=== PATIENT | male | born 1970 | race Two or more races ===

== ENCOUNTER 2023-09-26 14:00 | Inpatient (IN) | payer OTHER ==
[2023-09-26 14:44] VITALS: BMI 25.0
[2023-09-26] MEDS ORDERED: guaiFENesin 600 MG TABLET.ER (FP) PO PRN (15:50)
[2023-09-26] MEDS ORDERED: LOPERAMIDE HCL 2 MG CAPSULE PO PRN (15:50)
[2023-09-26] MEDS ORDERED: POLYETHYLENE GLYCOL (HEALTHYLAX) 3350 17 GM PACKET PO PRN (15:50)
[2023-09-26] MEDS ORDERED: ONDANSETRON *ODT* 4 MG TABLET SL PRN (15:50)
[2023-09-26] MEDS ORDERED: BENZONATATE 200 MG CAPSULE PO PRN (15:50)
[2023-09-26] MEDS ORDERED: NALOXONE HCL 0.4 MG/ML VIAL IM PRN (15:50)
[2023-09-26] MEDS ORDERED: MAG HYDROX/AL HYDROX/SIMETH 30 ML UNIT-DOSE CUP PO PRN (15:50)
[2023-09-26] MEDS ORDERED: BENZOCAINE/MENTHOL (CHLORASEPTIC ) LOZENGE MM PRN (15:50)
[2023-09-26] MEDS ORDERED: MAGNESIUM HYDROX 2400MG/30ML ORAL SUSPENSION 30 ML CUP PO PRN (15:50)
[2023-09-26] MEDS ORDERED: DICYCLOMINE HCL 10 MG CAPSULE PO PRN (15:50)
[2023-09-26] MEDS ORDERED: BISMUTH SUBSALICYLATE 524 MG/30 ML PO PRN (15:50)
[2023-09-26] MEDS ORDERED: NALOXONE HCL (KLOXXADO) 8 MG SPRAY NS PRN (15:50)
[2023-09-26] MEDS ORDERED: IBUPROFEN 400 MG TABLET (FP) PO PRN (15:50)
[2023-09-26] MEDS: LORazepam 2 MG TABLET PO ONE (16:25)
[2023-09-26] MEDS: PRENATAL VITAMINS W/ FOLIC ACID TABLET (FP) PO SCH (16:25)
[2023-09-26] MEDS: LORazepam 2 MG TABLET PO SCH (17:05)
[2023-09-26] MEDS: METHOCARBAMOL 500 MG TABLET PO PRN (20:14)
[2023-09-26] MEDS: hydrOXYzine PAMOATE 25 MG CAPSULE (FP) PO PRN (20:14)
[2023-09-26] MEDS: MELATONIN 5 MG TABLETS PO SCH (22:28)
[2023-09-26] MEDS: THIAMINE HCL 100 MG TABLET (FP) PO SCH (22:28)
[2023-09-27] MEDS: LORazepam 1 MG TABLET PO PRN (01:30)
[2023-09-27] MEDS: ACETAMINOPHEN 325 MG TABLET (FP) PO PRN (05:26)
[2023-09-27 09:34] VITALS: RESP 18
[2023-09-27] MEDS: IBUPROFEN 600 MG TABLET (FP) PO PRN (10:25)
[2023-09-27 12:32] LABS: HEMATOCRIT 31.9 % (35.4-49); HEMOGLOBIN 10.9 GM/dL (11.7-16.9); MCH 31.2 pg (25.7-33.7); MEAN CELL VOLUME 91.7 fl (80-96); RBC 3.48 M/mm3 (4.00-5.60)
[2023-09-27 12:47] LABS: CHLORIDE 107 mmol/L (98-107); SODIUM 140 mmol/L (136-145)
[2023-09-27 12:52] LABS: PLATELET COUNT 13 10^3/uL (134-434); WHITE BLOOD COUNT 1.6 K/mm3 (4.0-10.0)
[2023-09-27 13:09] LABS: ALBUMIN 2.8 g/dl (3.4-5.0); BLOOD UREA NITROGEN 8.2 mg/dL (7-18); CALCIUM 8.5 mg/dL (8.5-10.1); GLUCOSE,RANDOM 97 mg/dL (74-106)
[2023-09-27 13:10] LABS: ANION GAP 5 mmol/L (4-13); CO2 27 mmol/L (21-32)
[2023-09-27 13:11] LABS: CREATININE 0.5 mg/dL (0.55-1.3); SGPT/ALT 125 U/L (13-61)
[2023-09-27 13:13] LABS: BILIRUBIN,TOTAL 3.6 mg/dL (0.2-1); SGOT/AST 308 U/L (15-37); TOT PROT 6.2 g/dl (6.4-8.2)
[2023-09-27 13:15] LABS: ALK PHOS 217 U/L (45-117)
[2023-09-27 13:23] LABS: SYPHILIS W/ RPR CONF NON-REACTIVE (NONREACTIVE)
[2023-09-27 14:18] VITALS: BP 139/82; PULSE 89; TEMP 97.5
[2023-09-27 15:37] LABS: HIV INTERPRETATION NEGATIVE (NEGATIVE)
[2023-09-28] MEDS ORDERED: LORazepam 1 MG TABLET PO SCH (05:00)
[2023-09-29] MEDS ORDERED: LORazepam 0.5 MG TABLET PO PRN
[2023-09-29] MEDS ORDERED: LORazepam 0.5 MG TABLET PO SCH (05:00)
[2023-09-30] MEDS ORDERED: LORazepam 0.5 MG TABLET PO ONE (05:00)
== END 2023-09-27 23:49 | disposition short-term general hospital (02) | DRG 775 ==
LOC: YASAS 14:00 → Y6N 16:25
PROVIDERS: ADMIT Allergy & Immunology; ATTEND Surgery
PROC: HZ2ZZZZ Detoxification Services for Substance Abuse Treatment (ICD-10-PCS; principal; 2023-09-26)
DX: F10.230 Alcohol dependence with withdrawal, uncomplicated (principal); F17.210 Nicotine dependence, cigarettes, uncomplicated; D69.6 Thrombocytopenia, unspecified; D72.819 Decreased white blood cell count, unspecified; K74.60 Unspecified cirrhosis of liver
CPT/HCPCS: 36415; 80053; 80305; 80307; 85027; 86780; 87389; 87635; 87811

== ENCOUNTER 2023-09-27 15:23 | Inpatient (IN) | payer OTHER ==
[2023-09-27] MEDS: PANTOPRAZOLE SODIUM 40 MG VIAL IVPUSH ONE (17:00)
[2023-09-27] MEDS ORDERED: PANTOPRAZOLE SODIUM 40 MG/100 ML BAG IVPB ONE (17:08)
[2023-09-27 17:50] LABS: BASO % 0.6 % (0-2.0); HEMATOCRIT 31.3 % (35.4-49); HEMOGLOBIN 10.4 GM/dL (11.7-16.9); LYMPH % 33.4 % (8-40); MCH 30.6 pg (25.7-33.7); MCHC 33.2 g/dl (32.0-35.9); MEAN CELL VOLUME 92.3 fl (80-96); MEAN PLT VOLUME 9.3 fl (7.5-11.1); MONO % 9.2 % (3.8-10.2); NEUT % 51.8 % (42.8-82.8); RBC 3.39 M/mm3 (4.00-5.60); RDW 17.5 % (11.9-15.9)
[2023-09-27 17:59] LABS: INR 1.54 (0.83-1.09); PROTHROMBIN TIME (PATIENT) 17.8 SEC (9.7-13.0)
[2023-09-27 18:02] LABS: ACTIVATED PTT 32.7 SECONDS (25.2-36.5)
[2023-09-27 18:05] LABS: PLATELET COUNT 12 10^3/uL (134-434); WHITE BLOOD COUNT 1.9 K/mm3 (4.0-10.0)
[2023-09-27 18:15] LABS: POTASSIUM 3.8 mmol/L (3.5-5.1)
[2023-09-27 18:17] LABS: ALBUMIN 2.7 g/dl (3.4-5.0); CALCIUM 8.6 mg/dL (8.5-10.1); MAGNESIUM 1.4 mg/dL (1.8-2.4)
[2023-09-27 18:18] LABS: BLOOD UREA NITROGEN 10.9 mg/dL (7-18)
[2023-09-27 18:21] LABS: BILIRUBIN,DIRECT 2.8 mg/dL (0.0-0.2); CREATININE 0.5 mg/dL (0.55-1.3)
[2023-09-27 18:22] LABS: BILIRUBIN,TOTAL 4.4 mg/dL (0.2-1); TOT PROT 6.2 g/dl (6.4-8.2)
[2023-09-27] MEDS: LACTATED RINGERS SOLUTION 1000 ML INFUS.BAG IV ONE (19:43)
[2023-09-27] MEDS ORDERED: MAGNESIUM SULFATE IN WATER 2 GM/50 ML IVPB IVPB ONE (19:50)
[2023-09-27] MEDS: MAGNESIUM SULF 50% (8.12 MEQ/2 ML-1 GM VIAL) IVPB ONE (19:59)
[2023-09-27 20:24] LABS: ANISOCYTOSIS 1+; OVALOCYTE 1+; TEAR DROP CELLS 1+
[2023-09-27 20:27] LABS: PLATELET ESTIMATE DECREASED
[2023-09-27 22:46] LABS: HEMATOCRIT 29.2 % (35.4-49); HEMOGLOBIN 9.9 GM/dL (11.7-16.9); MEAN CELL VOLUME 91.2 fl (80-96); RDW 17.4 % (11.9-15.9)
[2023-09-27 22:50] LABS: WHITE BLOOD COUNT 1.7 K/mm3 (4.0-10.0)
[2023-09-27 22:51] LABS: PLATELET COUNT 24 10^3/uL (134-434)
[2023-09-28] MEDS: LACTATED RINGERS SOLUTION 1000 ML INFUS.BAG IV ONE ×2 (02:01→09:25)
[2023-09-28 07:04] LABS: POTASSIUM 3.9 mmol/L (3.5-5.1)
[2023-09-28 07:09] LABS: CALCIUM 8.4 mg/dL (8.5-10.1)
[2023-09-28 07:10] LABS: ALBUMIN 2.7 g/dl (3.4-5.0); BLOOD UREA NITROGEN 8.1 mg/dL (7-18); MAGNESIUM 1.5 mg/dL (1.8-2.4)
[2023-09-28 07:12] LABS: CREATININE 0.4 mg/dL (0.55-1.3); PHOSPHOROUS 2.9 mg/dL (2.5-4.9)
[2023-09-28 07:14] LABS: BILIRUBIN,DIRECT 3.3 mg/dL (0.0-0.2)
[2023-09-28 08:19] LABS: HEMATOCRIT 32.1 % (35.4-49); HEMOGLOBIN 10.9 GM/dL (11.7-16.9); MCH 31.3 pg (25.7-33.7); MCHC 33.9 g/dl (32.0-35.9); MEAN CELL VOLUME 92.4 fl (80-96); MEAN PLT VOLUME 8.5 fl (7.5-11.1); RBC 3.47 M/mm3 (4.00-5.60); RDW 16.9 % (11.9-15.9); WHITE BLOOD COUNT 2.1 K/mm3 (4.0-10.0)
[2023-09-28 08:24] LABS: ACTIVATED PTT 34.5 SECONDS (25.2-36.5)
[2023-09-28 08:27] LABS: INR 1.79 (0.83-1.09); PROTHROMBIN TIME (PATIENT) 20.6 SEC (9.7-13.0)
[2023-09-28 08:28] LABS: PLATELET COUNT 22 10^3/uL (134-434)
[2023-09-28] MEDS: LORazepam 1 MG TABLET PO ONE (09:19)
[2023-09-28] MEDS: MAGNESIUM SULFATE IN WATER 2 GM/50 ML IVPB IVPB ONE (09:19)
[2023-09-28] MEDS: PANTOPRAZOLE SODIUM 40 MG VIAL IVPUSH SCH (09:20)
[2023-09-28] MEDS: FOLIC ACID 1 MG TABLET (FP) PO SCH (11:34)
[2023-09-28] MEDS: THIAMINE HCL 100 MG TABLET (FP) PO SCH (11:34)
[2023-09-28] MEDS ORDERED: INSULIN (NOVOLOG) ASPART 100 UNITS/ML 10ML VIAL ONE (11:54)
[2023-09-28] MEDS: LORazepam 1 MG TABLET PO SCH (14:25)
[2023-09-29 08:59] LABS: BASO % 0.5 % (0-2.0); EOS % 2.7 % (0-4.5); HEMATOCRIT 32.2 % (35.4-49); HEMOGLOBIN 10.6 GM/dL (11.7-16.9); LYMPH % 27.4 % (8-40); MCH 30.6 pg (25.7-33.7); MCHC 32.9 g/dl (32.0-35.9); MEAN PLT VOLUME 8.3 fl (7.5-11.1); MONO % 9.1 % (3.8-10.2); NEUT % 60.3 % (42.8-82.8); RBC 3.46 M/mm3 (4.00-5.60); RDW 17.3 % (11.9-15.9); WHITE BLOOD COUNT 2.5 K/mm3 (4.0-10.0)
[2023-09-29 09:06] LABS: PLATELET COUNT 23 10^3/uL (134-434)
[2023-09-29 09:11] LABS: POTASSIUM 3.7 mmol/L (3.5-5.1)
[2023-09-29] MEDS: PANTOPRAZOLE SODIUM 40 MG VIAL IVPUSH SCH (09:11)
[2023-09-29 09:17] LABS: ALBUMIN 2.5 g/dl (3.4-5.0); CALCIUM 7.9 mg/dL (8.5-10.1)
[2023-09-29 09:18] LABS: BLOOD UREA NITROGEN 10.9 mg/dL (7-18)
[2023-09-29 09:20] LABS: CREATININE 0.5 mg/dL (0.55-1.3)
[2023-09-29 09:22] LABS: TOT PROT 5.7 g/dl (6.4-8.2)
[2023-09-29 09:30] LABS: BILIRUBIN,TOTAL 2.6 mg/dL (0.2-1)
[2023-09-29] MEDS: methylPREDNISolone 8 MG TABLET PO SCH (09:53)
[2023-09-29] MEDS: methylPREDNISolone 4 MG TABLET PO SCH (10:20)
[2023-09-29] MEDS ORDERED: LORazepam 1 MG TABLET PO PRN (11:35)
[2023-09-29] MEDS: LORazepam 1 MG TABLET PO SCH (11:54)
[2023-09-29] MEDS ORDERED: INSULIN (NOVOLOG) ASPART 100 UNITS/ML 10ML VIAL ONE (22:00)
[2023-09-29] MEDS: INSULIN ASPART SLIDING SCALE (NOVOLOG) 1 VIAL SQ SCH (22:03)
[2023-09-30 09:18] LABS: BASO % 0.1 % (0-2.0); EOS % 0.3 % (0-4.5); HEMATOCRIT 35.4 % (35.4-49); HEMOGLOBIN 11.6 GM/dL (11.7-16.9); LYMPH % 13.7 % (8-40); MCH 30.5 pg (25.7-33.7); MCHC 32.6 g/dl (32.0-35.9); MEAN CELL VOLUME 93.6 fl (80-96); MEAN PLT VOLUME 8.8 fl (7.5-11.1); MONO % 8.8 % (3.8-10.2); NEUT % 77.1 % (42.8-82.8); RBC 3.78 M/mm3 (4.00-5.60); RDW 17.5 % (11.9-15.9); WHITE BLOOD COUNT 5.6 K/mm3 (4.0-10.0)
[2023-09-30] MEDS: MAGNESIUM SULF 50% (8.12 MEQ/2 ML-1 GM VIAL) IVPB ONE (09:18)
[2023-09-30] MEDS: VANCOMYCIN 1,000 MG in DEXTROSE 5%-WATER - 250 ML IVPB ONE (09:18)
[2023-09-30] MEDS: CEFEPIME HCL 2 GM VIAL (RESTRICTED TO ID) IVPB ONE (09:19)
[2023-09-30 09:24] LABS: INR 1.53 (0.83-1.09); PROTHROMBIN TIME (PATIENT) 17.7 SEC (9.7-13.0)
[2023-09-30 09:40] LABS: PLATELET COUNT 27 10^3/uL (134-434)
[2023-09-30 09:51] LABS: POTASSIUM 3.9 mmol/L (3.5-5.1)
[2023-09-30 10:02] LABS: ALBUMIN 2.8 g/dl (3.4-5.0); CALCIUM 8.3 mg/dL (8.5-10.1)
[2023-09-30 10:03] LABS: BLOOD UREA NITROGEN 10.8 mg/dL (7-18)
[2023-09-30 10:05] LABS: CREATININE 0.5 mg/dL (0.55-1.3)
[2023-09-30 10:06] LABS: TOT PROT 6.5 g/dl (6.4-8.2)
[2023-09-30 10:07] LABS: BILIRUBIN,TOTAL 2.2 mg/dL (0.2-1)
[2023-09-30] MEDS ORDERED: LACTULOSE 20 GM/30 ML UDC (FOR ORAL USE ONLY) PO PRN (12:26)
[2023-09-30] MEDS ORDERED: INSULIN (NOVOLOG) ASPART 100 UNITS/ML 10ML VIAL ONE (20:09)
[2023-09-30] MEDS: LACTULOSE 20 GM/30 ML UDC (FOR ORAL USE ONLY) PO SCH (22:07)
[2023-10-01] MEDS: LORazepam 1 MG TABLET PO SCH (06:46)
[2023-10-01 09:25] LABS: INR 1.33 (0.83-1.09); PROTHROMBIN TIME (PATIENT) 15.4 SEC (9.7-13.0)
[2023-10-01 09:27] LABS: BASO % 0.1 % (0-2.0); EOS % 0.1 % (0-4.5); HEMATOCRIT 40.8 % (35.4-49); HEMOGLOBIN 13.3 GM/dL (11.7-16.9); LYMPH % 11.7 % (8-40); MCH 30.9 pg (25.7-33.7); MCHC 32.7 g/dl (32.0-35.9); MEAN CELL VOLUME 94.5 fl (80-96); MEAN PLT VOLUME 9.3 fl (7.5-11.1); MONO % 10.7 % (3.8-10.2); NEUT % 77.4 % (42.8-82.8); RBC 4.32 M/mm3 (4.00-5.60)
[2023-10-01 09:42] LABS: PLATELET COUNT 31 10^3/uL (134-434)
[2023-10-01 09:43] LABS: POTASSIUM 3.6 mmol/L (3.5-5.1)
[2023-10-01 09:50] LABS: ALBUMIN 3.4 g/dl (3.4-5.0); BLOOD UREA NITROGEN 12.4 mg/dL (7-18); CALCIUM 8.6 mg/dL (8.5-10.1); POTASSIUM 3.6 mmol/L (3.5-5.1)
[2023-10-01 09:51] LABS: CREATININE 0.6 mg/dL (0.55-1.3)
[2023-10-01 09:52] LABS: BILIRUBIN,TOTAL 1.9 mg/dL (0.2-1)
[2023-10-01 09:53] LABS: BILIRUBIN,DIRECT 1.3 mg/dL (0.0-0.2); TOT PROT 7.5 g/dl (6.4-8.2)
[2023-10-01 10:09] LABS: TOT PROT 7.7 g/dl (6.4-8.2)
[2023-10-01 10:22] LABS: CALCIUM 8.5 mg/dL (8.5-10.1)
[2023-10-01 10:23] LABS: ALBUMIN 3.3 g/dl (3.4-5.0); BLOOD UREA NITROGEN 12.3 mg/dL (7-18)
[2023-10-01 10:26] LABS: CREATININE 0.6 mg/dL (0.55-1.3)
[2023-10-01 21:38] LABS: HEPATITIS B SURFACE AG CONFIRM CONFIRMED (NONREACTIVE)
[2023-10-02] MEDS ORDERED: LORazepam 0.5 MG TABLET PO PRN
[2023-10-02] MEDS: LORazepam 0.5 MG TABLET PO SCH (06:40)
[2023-10-02 09:45] LABS: INR 1.41 (0.83-1.09); PROTHROMBIN TIME (PATIENT) 16.3 SEC (9.7-13.0)
[2023-10-02] MEDS: methylPREDNISolone 4 MG TABLET PO SCH (09:45)
[2023-10-02] MEDS: PANTOPRAZOLE 40 MG TABLET PO SCH (09:45)
[2023-10-02] MEDS: TENOFOVIR DISOPROXIL FUMARATE 300 MG TABLET PO SCH (09:45)
[2023-10-02 09:53] LABS: BASO % 0.5 % (0-2.0); EOS % 0.9 % (0-4.5); HEMATOCRIT 35.1 % (35.4-49); HEMOGLOBIN 11.5 GM/dL (11.7-16.9); LYMPH % 29.6 % (8-40); MCH 30.8 pg (25.7-33.7); MCHC 32.8 g/dl (32.0-35.9); MEAN CELL VOLUME 94.1 fl (80-96); MONO % 19.2 % (3.8-10.2); NEUT % 49.8 % (42.8-82.8); RBC 3.73 M/mm3 (4.00-5.60); RDW 18.6 % (11.9-15.9); WHITE BLOOD COUNT 3.2 K/mm3 (4.0-10.0)
[2023-10-02 10:11] LABS: CALCIUM 8.1 mg/dL (8.5-10.1)
[2023-10-02 10:13] LABS: PLATELET COUNT 26 10^3/uL (134-434); POTASSIUM 3.7 mmol/L (3.5-5.1)
[2023-10-02 10:14] LABS: CREATININE 0.6 mg/dL (0.55-1.3)
[2023-10-02 10:16] LABS: BILIRUBIN,TOTAL 1.4 mg/dL (0.2-1)
[2023-10-02 10:19] LABS: ALBUMIN 2.5 g/dl (3.4-5.0)
[2023-10-02 10:35] LABS: BILIRUBIN,DIRECT 0.9 mg/dL (0.0-0.2)
[2023-10-02 10:36] LABS: BILIRUBIN,TOTAL 1.4 mg/dL (0.2-1)
[2023-10-02 10:39] LABS: ALBUMIN 2.6 g/dl (3.4-5.0)
[2023-10-02 15:49] VITALS: BMI 26.3
[2023-10-02 16:11] LABS: GLIADIN ANTIBODY IGA 6 units (0-19); GLIADIN ANTIBODY IGG 3 units (0-19); TRANSGLUTAMINASE IGG 5 U/mL (0-5)
[2023-10-02] MEDS ORDERED: INSULIN (NOVOLOG) ASPART 100 UNITS/ML 10ML VIAL ONE (16:38)
[2023-10-03] MEDS: LORazepam 0.5 MG TABLET PO ONE (06:45)
[2023-10-03 08:57] LABS: ALBUMIN 2.6 g/dl (3.4-5.0)
[2023-10-03 09:01] LABS: BILIRUBIN,DIRECT 0.8 mg/dL (0.0-0.2)
[2023-10-03 09:02] LABS: BILIRUBIN,TOTAL 1.2 mg/dL (0.2-1); TOT PROT 6.1 g/dl (6.4-8.2)
[2023-10-04] MEDS: methylPREDNISolone 4 MG TABLET PO SCH (09:01)
[2023-10-04] MEDS ORDERED: methylPREDNISolone 4 MG TABLET PO SCH (10:09)
[2023-10-04 10:41] VITALS: BP 118/66; PULSE 62; RESP 20; TEMP 98.2
[2023-10-06] MEDS ORDERED: methylPREDNISolone 4 MG TABLET PO SCH (10:00)
[2023-10-08] MEDS ORDERED: methylPREDNISolone 2 MG TABLET PO SCH (10:00)
== END 2023-10-04 12:28 | disposition other institution (70) | DRG 280 ==
LOC: JER 15:23 → JERBED 19:51 → JICU 21:56 → J8W 09-29 01:42
PROVIDERS: ADMIT Internal Medicine Pulmonary Disease; ATTEND Nurse Practitioner Acute Care
PROC: 30233R1 Transfusion of Nonautologous Platelets into Peripheral Vein, Percutaneous Approach (ICD-10-PCS; principal; 2023-09-27)
DX: K70.31 Alcoholic cirrhosis of liver with ascites (principal); K70.11 Alcoholic hepatitis with ascites; D61.818 Other pancytopenia; D69.6 Thrombocytopenia, unspecified; B19.10 Unspecified viral hepatitis B without hepatic coma; S09.90XA Unspecified injury of head, initial encounter; F10.239 Alcohol dependence with withdrawal, unspecified; D64.9 Anemia, unspecified; W19.XXXA Unspecified fall, initial encounter; Y93.9 Activity, unspecified; Y92.89 Other specified places as the place of occurrence of the external cause; Y99.9 Unspecified external cause status
CPT/HCPCS: 0241U-QW; 36415; 36430; 36511; 70450-TC; 76700-TC; 80048; 80053; 80076; 82105; 82140; 82150; 82248; 82272; 82728; 82784; 82962; 83516; 83540; 83550; 83605; 83615; 83690; 83735; 84100; 84155; 84165; 85025; 85027; 85379; 85384; 85610; 85660; 85730; 86038; 86140; 86480; 86705; 86803; 86850; 86900; 86901; 87040; 87340; 87380; 87517; 87635; 93005; 93010; 97116-GP; 97161-GP; 99285-25; P9037; P9038